=== PATIENT | male | born 1935 | race Caucasian/White ===

== ENCOUNTER 2020-05-13 16:10 | Emergency (ER) | payer MEDICARE, BC ==
[~2020-05-13] VITALS: Ht 180.3 cm; Wt 80.0 kg
[~2020-05-13 16:10] MED LIST: ATOR40TA72 PO; ESCI20TA45 PO; FURO40TA4 PO; HYDR-3972 PO; LOSA50TA64 PO; METO-384 PO; POTA20TA19 PO; ZAR2.5T PO
[2020-05-13 16:35] LABS: BASOPHILS # (AUTO) 0.1 X10'3 (0-0.2); BASOPHILS % (AUTO) 0.4 % (0-1); EOSINOPHILS % (AUTO) 0.1 % (0-6); HEMATOCRIT 46.4 % (42.0-52.0); HEMOGLOBIN 15.6 g/dl (14.0-17.9); LYMPHOCYTES # (AUTO) 0.6 X10'3 (1.1-4.8); MEAN CORPUSCULAR HGB CONC 33.7 g/dL (33.0-36.5); MEAN CORPUSCULAR VOLUME 100.8 FL (78-98); MEAN PLATELET VOLUME 9.5 FL (7.4-10.4); MONOCYTES # (AUTO) 0.8 X10'3 (0-0.9); MONOCYTES % (AUTO) 5.2 % (2-12); NEUTROPHILS # (AUTO) 13.4 X10'3 (1.8-7.7); NEUTROPHILS % (AUTO) 90.3 % (42-75); PLATELET COUNT 145 X10'3 (140-440); RED CELL DISTRIBUTION WIDTH 14.6 % (11.5-14.5); WHITE BLOOD COUNT 14.8 X10'3 (4.5-11.0)
[2020-05-13 17:00] LABS: PARTIAL THROMBOPLASTIN TIME 33 SECONDS (22-32)
[2020-05-13 17:06] LABS: ALANINE AMINOTRANSFERASE 49 U/L (12-78); ALBUMIN 3.6 G/DL (3.4-5.0); ALKALINE PHOSPHATASE 99 IU/L (46-116); ANION GAP 3 (8-16); ASPARTATE AMINO TRANSFERASE 42 U/L (10-37); BILIRUBIN,TOTAL 1.2 MG/DL (0.1-1.0); BLOOD UREA NITROGEN 34 MG/DL (7-18); BUN/CREATININE RATIO 20.6 (5.4-32.0); CALCIUM 9.3 MG/DL (8.5-10.1); CHLORIDE 99 MMOL/L (99-107); CREATININE 1.65 MG/DL (0.60-1.10); GLUCOSE 92 MG/DL (70-104); POTASSIUM 3.8 MMOL/L (3.5-5.1); SODIUM 135 MMOL/L (135-145); TOTAL CARBON DIOXIDE 33.5 MMOL/L (24-32); TOTAL PROTEIN 7.2 G/DL (6.4-8.2); eGFR 40 ML/MIN
[2020-05-13 17:13] LABS: MAGNESIUM 1.8 MG/DL (1.5-2.4)
--- NOTE | 2020-05-13 17:44 | NUR ---
patient reports 1/10 chest pressure at this time,still waiting for patient to be seen by a provider.
--- NOTE | 2020-05-13 17:48 | NUR ---
PTS FAMILY WAITING OUTSIDE UPDATED THEM PER PT THAT HE IS FEELING FINE AND THEY SHOULD GO HOME. FAMILY LAUGHED AND STATES "HE WOULD SAY THAT" FAMILY WILL CONTINUE WAIT OUTSIDE ON THE [facility] UNTIL PLAN OF CARE DECIDED
[2020-05-13 18:24] VITALS: BP 119/68
== END 2020-05-13 18:27 | disposition home or self-care (01) ==
LOC: ER 16:11
DX: R07.89 Other chest pain (principal); E78.00 Pure hypercholesterolemia, unspecified; I10 Essential (primary) hypertension; Z79.899 Other long term (current) drug therapy
CPT/HCPCS: 36415; 71045; 80053; 83735; 83880; 84484; 85025; 85610; 85730; 93005; 99285

== ENCOUNTER 2022-05-10 05:00 | Emergency (ER) | payer MEDICARE, BC ==
[~2022-05-10] VITALS: Ht 177.8 cm; Wt 79.5 kg
[~2022-05-10 05:00] MED LIST changes: +AMLO2.5T4 PO; +ESCI20TA39 PO; -ESCI20TA45 PO; +POTA-207 PO; -POTA20TA19 PO
[2022-05-10] MEDS ORDERED: LIDOcaine Viscous 15ml cup MM ONE (05:15)
[2022-05-10 06:24] VITALS: BP 150/80
== END 2022-05-10 06:28 | disposition home or self-care (01) ==
LOC: ER 05:00
DX: K59.00 Constipation, unspecified (principal); R19.7 Diarrhea, unspecified; E78.00 Pure hypercholesterolemia, unspecified; I11.0 Hypertensive heart disease with heart failure; Z87.448 Personal history of other diseases of urinary system; Z79.899 Other long term (current) drug therapy
CPT/HCPCS: 99284

== ENCOUNTER 2023-09-25 09:27 | Outpatient (CLI) | payer MEDICARE, BC | END 2023-09-25 23:59 | disposition home or self-care (01) | LOC: CARD DIAG 09:27 | PROVIDERS: ATTEND Registered Nurse | DX: I08.3 Combined rheumatic disorders of mitral, aortic and tricuspid valves (principal); I70.0 Atherosclerosis of aorta; I50.9 Heart failure, unspecified; R06.02 Shortness of breath; Z95.0 Presence of cardiac pacemaker | CPT/HCPCS: 71046; 93306 ==

== ENCOUNTER 2024-05-27 16:42 | Emergency (ER) | payer MEDICARE, BC ==
[~2024-05-27] VITALS: Ht 177.8 cm; Wt 72.7 kg
[2024-05-27 18:06] VITALS: BP 116/58; PULSE 78; RESP 18; TEMP 97.5; O2SAT 98
== END 2024-05-27 18:07 | disposition home or self-care (01) ==
LOC: ER 16:43
DX: S50.01XA Contusion of right elbow, initial encounter (principal); I11.0 Hypertensive heart disease with heart failure; I50.9 Heart failure, unspecified; E78.00 Pure hypercholesterolemia, unspecified; Z79.899 Other long term (current) drug therapy; Z95.0 Presence of cardiac pacemaker; W19.XXXA Unspecified fall, initial encounter; Y93.89 Activity, other specified; Y92.89 Other specified places as the place of occurrence of the external cause; Y99.8 Other external cause status
CPT/HCPCS: 73080; 99283

== ENCOUNTER 2024-07-07 14:48 | Emergency (ER) | payer MEDICARE, BC ==
[~2024-07-07] VITALS: Ht 172.7 cm; Wt 72.7 kg
[2024-07-07 14:56] VITALS: BP 146/77; PULSE 74; TEMP 98.5; O2SAT 98
[2024-07-07] MEDS: oxyCODONE/APAP 5-325mg tablet PO ONE (16:22)
[2024-07-07 16:31] VITALS: RESP 18
== END 2024-07-07 16:32 | disposition home or self-care (01) ==
LOC: ER 14:49
DX: R07.89 Other chest pain (principal); R07.81 Pleurodynia; G89.29 Other chronic pain; M54.9 Dorsalgia, unspecified; I11.0 Hypertensive heart disease with heart failure; I50.9 Heart failure, unspecified; E78.00 Pure hypercholesterolemia, unspecified; Z95.0 Presence of cardiac pacemaker; Z79.899 Other long term (current) drug therapy
CPT/HCPCS: 71100; 99283

== ENCOUNTER 2024-09-20 06:49 | Emergency (ER) | payer MEDICARE, BC ==
[~2024-09-20] VITALS: Ht 177.8 cm; Wt 75.0 kg
[2024-09-20 06:52] VITALS: TEMP 98.3
[2024-09-20] MEDS: oxymetazoline 15 ML nasal spray NS ONE (07:14)
[2024-09-20] MEDS: LIDOcaine 2% Viscous 15ml cup TP ONE (08:39)
[2024-09-20] MEDS: silver nitrate applicator stick TP ONE (09:38)
[2024-09-20 09:55] VITALS: BP 126/65; PULSE 78; RESP 18; O2SAT 97
== END 2024-09-20 09:58 | disposition home or self-care (01) ==
LOC: ER 06:50
DX: R04.0 Epistaxis (principal); E78.00 Pure hypercholesterolemia, unspecified; I13.0 Hypertensive heart and chronic kidney disease with heart failure and stage 1 through stage 4 chronic kidney disease, or unspecified chronic kidney disease; I50.9 Heart failure, unspecified; N18.9 Chronic kidney disease, unspecified; Z95.0 Presence of cardiac pacemaker
CPT/HCPCS: 99284

== ENCOUNTER 2025-05-06 12:40 | Outpatient (CLI) | payer MEDICARE, BC, OTHER ==
[~2025-05-06 12:40] MED LIST changes: -AMLO2.5T4 PO; +APIX2.5T PO; -ESCI20TA39 PO; -FURO40TA4 PO; -HYDR-3972 PO; -LOSA50TA64 PO; -METO-384 PO; +MIDO5TAB4 PO; -POTA-207 PO; -ZAR2.5T PO
--- NOTE | 2025-05-06 14:37 | VASCULAR REPORT ---
Right lower extremity venous duplex Clinical History: Pain leg swelling Comparison: None Findings: Vein Imaging (Left) CFV (L): Compressible, Spontaneous, Respirophasic, Augmentation Reflux: ms SFJ (L): Compressible, Spontaneous, Respirophasic, Augmentation Reflux: ms FEM (L): Compressible, Spontaneous, Respirophasic, Augmentation Reflux: ms POP (L): Compressible, Spontaneous, Respirophasic, Augmentation Reflux: ms DFV (L): Compressible, Spontaneous, Respirophasic, Augmentation Reflux: ms PTV (L): Compressible, Spontaneous, Respirophasic, Augmentation Reflux: ms GSV (L): Compressible, Spontaneous, Respirophasic, Augmentation Reflux: ms SSV (L): Compressible, Spontaneous, Respirophasic, Augmentation Reflux: ms Peroneals (L): Compressible, Spontaneous, Respirophasic, Augmentation Reflux: ms CONCLUSION No sonographic evidence of deep vein thrombosis to left lower extremity. Normal compressible veins with respirophasic flow and good augmentation throughout left leg. No deep or superficial reflux demonstrating indicating no venous insufficiency.
== END 2025-05-06 23:59 | disposition home or self-care (01) ==
LOC: VAS 12:40
PROVIDERS: ATTEND Nurse Practitioner Family
DX: M79.89 Other specified soft tissue disorders (principal)
CPT/HCPCS: 93971